=== PATIENT | female | born 1990 | race Caucasian/White ===

== ENCOUNTER → 2016-05-05 | Outpatient (CLI) | payer OTHER ==
--- NOTE | 2016-05-05 16:45 | RAD ---
Renal ultrasound, 05/05/2016: History: Bilateral flank pain The right kidney measures 12.7 cm in length while the left kidney measures 11.3 cm. There is mild prominence of the right renal pelvis. The calyces are not dilated. The left kidney is unremarkable. No renal mass is seen. Limited views of the urinary bladder show no abnormality. Bilateral ureteral jets are evident. IMPRESSION: 1. Mildly prominent extrarenal pelvis on the right. 2. The kidneys are otherwise unremarkable.
== END | disposition home or self-care (01) ==
LOC: US 15:34
PROVIDERS: ATTEND Physician Assistant Medical
DX: R10.9 Unspecified abdominal pain (principal)
CPT/HCPCS: 76770